=== PATIENT | female | born 2000 | race Caucasian/White ===

== ENCOUNTER 2021-04-09 09:38 | Day surgery (SDC) | payer BC ==
[2021-04-08 13:04] VITALS: BMI 16.8
[2021-04-09] MEDS ORDERED: Levofloxacin 500 mg/D5W 100 ml Premix Bag ONE (10:12)
[2021-04-09] MEDS ORDERED: Iothalamate Meglumine 60% 50 ML VIAL FS ONE (12:13)
[2021-04-09] MEDS ORDERED: Acetaminophen 500 MG TAB ONE (12:35)
[2021-04-09] MEDS ORDERED: Lidocaine 1% PF 5 ML VIAL ONE (12:43)
[2021-04-09] MEDS ORDERED: Ondansetron PF 4 MG/2 ML Vial ONE (12:43)
[2021-04-09] MEDS ORDERED: Dexamethasone 20 MG/5 ML VIAL ONE (12:43)
[2021-04-09] MEDS ORDERED: PROPOFOL 200 MG/20 ML VIAL ONE (12:43)
[2021-04-09] MEDS ORDERED: Ketorolac Tromethamine 30 MG/ML VIAL ONE (13:37)
[2021-04-09] MEDS ORDERED: Oxybutynin 5 MG TAB ONE (13:38)
[2021-04-09] MEDS ORDERED: Promethazine HCl 25 MG/ML VIAL ONE (13:39)
== END 2021-04-09 14:50 | disposition home or self-care (01) ==
LOC: SDC 09:38
PROVIDERS: ATTEND Urology
PROC: 0T768DZ Dilation of Right Ureter with Intraluminal Device, Via Natural or Artificial Opening Endoscopic (ICD-10-PCS; principal; 2021-04-09)
PROC: 0TC38ZZ Extirpation of Matter from Right Kidney Pelvis, Via Natural or Artificial Opening Endoscopic (ICD-10-PCS; principal; 2021-04-09)
DX: N20.0 Calculus of kidney (principal); Z79.899 Other long term (current) drug therapy; Z88.1 Allergy status to other antibiotic agents
CPT/HCPCS: 74420; 82365; 88300; C2617; J1100; J1885; J1956; J2405; J2550; J2704; Q9961

== ENCOUNTER 2024-10-20 11:34 | Outpatient (CLI) | payer BC | END 2024-10-20 11:35 | disposition home or self-care (01) | LOC: SCSRAD 11:34 | PROVIDERS: ATTEND Family Medicine | DX: M54.50 Low back pain, unspecified (principal); M54.6 Pain in thoracic spine | CPT/HCPCS: 72072; 72100 ==